=== PATIENT | male | born 1960 | race Caucasian/White ===

== ENCOUNTER 2024-06-17 15:19 | Emergency (ER) | payer MEDICARE, OTHER, SELFPAY ==
--- NOTE | ~2024-06-17 | XR_ITS ---
XR chest 2V Ordering provider: Abhi Jauregui MD History: 64 years Male with . chest pain FOR 2 DAYS . Comparison: None. FINDINGS: MEDIASTINUM: The cardiac silhouette is not enlarged. LUNGS: No infiltrates, effusions or pneumothorax. Prominent markings in the lower lobes more on the l eft side. OTHER: No free air under the diaphragm. Degenerative changes of the spine. IMPRESSION: Slightly prominent markings in the lower lobes. No acute cardiopulmonary pathology. Reviewed, dictated and finalized at location A.
--- NOTE | ~2024-06-17 | CT_ITS ---
EXAMINATION: CTA chest PE protocol DATE: 06/17/2024 15:46 CDT INDICATION: Sharp stabbing pleuritic left chest pain TECHNIQUE: Computed tomographic angiography (CTA) of the chest was performed with 100 mL Omnipaque-35 0 intravenous contrast. The dose-length product was 412.08 mGy-cm. Maximum intensity projection 3D-re constructions of the aorta and other arteries were constructed by the technologist on a separate work station.. Automated exposure control and iterative reconstruction technique were employed. COMPARISON: None. FINDINGS: Study is technically adequate without evidence for pulmonary embolism. Heart size normal. S mall hiatal hernia. No significant pleural or pericardial effusion. There is mild atherosclerosis. Mi ld right hilar lymphadenopathy, likely reactive. There is bilateral groundglass opacification of the upper and lower lungs. There is bilateral peripheral interlobular septal thickening which may reflect edema or atypical pneumonia. Moderate thoracic spondylosis. No endobronchial lesions. Moderate thora cic spondylosis. IMPRESSION: 1. No evidence for pulmonary embolism. 2: Patchy groundglass opacities bilaterally with interlobular septal thickening peripherally. Differe ntial diagnosis includes mild edema and atypical pneumonia. 3: Small hiatal hernia. Reviewed, dictated and finalized at location A. IMPRESSION: 1. No evidence for pulmonary embolism. 2: Patchy groundglass opacities bilaterally with interlobular septal thickening peripherally. Differential diagnosis includes mild edema and atypical pneumoni a. 3: Small hiatal hernia.
--- NOTE | 2024-06-17 15:21 | ECG_ITS ---
Test Date: 2024-06-17 15:25:58 Measurements Intervals [place] Rate: 75 P: 50 RI: 154 QRS: -16 QRSD: 95 T: 44 QT: 367 QTc: 411 Interpretive Statements SINUS RHYTHM LEFTWARD AXIS ABNORMAL ECG No previous ECG available for comparison Electronically Signed On 06-18-2024 09:53:28 CDT by Albert Herrera M.D.
[2024-06-17 15:22] VITALS: BP 94/63; PULSE 79; RESP 20; TEMP 36.4; O2SAT 95
--- NOTE | 2024-06-17 15:29 | ED.CHESTPAIN ---
HPI - Chest Pain General Chief Complaint: Chest Pain <Jennifer Gonzalez PA-C - Last Filed: 06/17/24 15:32> Stated Complaint: CP <Jennifer Gonzalez PA-C - Last Filed: 06/17/24 15:32> Time Seen by Provider: 06/17/24 15:28 <Jennifer Gonzalez PA-C - Last Filed: 06/17/24 15:32> Focused HPI: Patient is a 64-year-old male who presents the ED via EMS with report of chest pain. Patient reports he was having some discomfort through his left-sided chest with deep breathing yesterday. Pain became significantly worse today while he was working. Described as sharp stabbing intermittent pains and left-sided chest. Does feel somewhat short of breath. Denies back pain. Denies recent cough or cold symptoms. Denies pain or swelling in legs. Denies previous heart issues. GENERAL: Mildly ill and somewhat dusky-appearing, well-nourished, and in no acute distress. HEAD: Normocephalic, atraumatic. CHEST: No respiratory distress. Coarse lung sounds in bases bilaterally. HEART: Regular rate and rhythm.? MSK: No chest wall tenderness to palpation. NEURO: ?Alert and oriented x3. Patient screened in triage and initial orders placed.? ?Additional care and disposition to be based upon?diagnostic testing and treatment. <Jennifer Gonzalez PA-C - Last Filed: 06/17/24 15:32> Source: patient <Jennifer Gonzalez PA-C - Last Filed: 06/17/24 15:32> Mode of arrival: EMS <Jennifer Gonzalez PA-C - Last Filed: 06/17/24 15:32> Limitations: no limitations <Jennifer Gonzalez PA-C - Last Filed: 06/17/24 15:32> History of Present Illness HPI narrative: Agree with the HPI above. Patient has not had any recent illnesses or sick contacts. <Jimenez Conway MD - Last Filed: 06/17/24 17:33> Related Data Allergies/Adverse Reactions: Allergies Allergy/AdvReac Type Severity Reaction Status Date / Time No Known Allergies Allergy Verified 06/17/24 15:21 <Jennifer Gonzalez PA-C - Last Filed: 06/17/24 15:32> Review of Systems Review of Systems: As reviewed above <Jimenez Conway MD - Last Filed: 06/17/24 17:33> Exam Narrative: GENERAL: [Well-appearing, well-nourished, and in no acute distress.] HEAD: [Normocephalic, atraumatic.] EYES: [PERRLA and EOMI.] ENT: Nares clear, no rhinorrhea or epistaxis. Mucous membranes moist. NECK: Supple. CHEST: Adventitious breath sounds bilaterally but no respiratory distress, coarse crackles but no wheezing. No tachypnea HEART: [Regular rate and rhythm]. No murmur heard. [Normal peripheral pulses.] ABDOMEN: [Soft, nondistended], [nontender], [No rigidity or guarding] EXTREMITIES: Normal range of motion. [No edema.] SKIN: Warm, dry, no rash. NEURO: [No focal deficits]. Alert and oriented [x3.] PSYCH: [Normal mood and affect.] <Jimenez Conway MD - Last Filed: 06/17/24 17:33> Course Vital Signs Vital signs: Vital Signs Temperature 36.4 C 06/17/24 15:22 Pulse Rate 79 06/17/24 15:22 Respiratory Rate 20 06/17/24 15:22 Blood Pressure 94/63 L 06/17/24 15:22 Pulse Oximetry 95 06/17/24 15:22 Oxygen Delivery Room Air 06/17/24 15:22 Temperature 36.4 C 06/17/24 15:22 Pulse Rate 66 06/17/24 17:12 Respiratory Rate 17 06/17/24 17:11 Blood Pressure 110/70 06/17/24 17:11 Pulse Oximetry 96 06/17/24 17:15 Oxygen Delivery Room Air 06/17/24 17:15 <Jennifer Gonzalez PA-C - Last Filed: 06/17/24 15:32> Vital Signs Temperature 36.4 C 06/17/24 15:22 Pulse Rate 79 06/17/24 15:22 Respiratory Rate 20 06/17/24 15:22 Blood Pressure 94/63 L 06/17/24 15:22 Pulse Oximetry 95 06/17/24 15:22 Oxygen Delivery Room Air 06/17/24 15:22 Temperature 36.4 C 06/17/24 15:22 Pulse Rate 66 06/17/24 17:12 Respiratory Rate 17 06/17/24 17:11 Blood Pressure 110/70 06/17/24 17:11 Pulse Oximetry 96 06/17/24 17:15 Oxygen Delivery Room Air 06/17/24 17:15 <Jimenez Conway MD - Last Filed: 06/17/24 17:33> MDM - Chest Pain MDM Narrative Medical decision making narrative: MSE by DANE in triage. <Jennifer Gonzalez PA-C - Last Filed: 06/17/24 15:32> MSE by DANE in triage. 64-year-old male presenting to the emergency department for left-sided pleuritic chest pain for several days. Was otherwise in his normal state of health. States that hurts to move intake deep breath. Denies any trauma or injury. No sick contacts. No productive cough, no nausea, vomiting, abdominal pain, back pain, fever, chills. No component of exertional chest pain or exertional dyspnea. No cardiac history to his knowledge. No history of PE. Differential diagnosis includes costochondritis, pleurisy, pericarditis, pulmonary embolism, pneumonia, less likely ACS. Workup was ordered including CBC, CMP, lipase, EKG, chest x-ray, troponin. CT angiography of his chest was ordered he was given a fluid bolus and re-evaluated. Placed on playground monitor and pulse oximetry. Workup reveals a slight leukocytosis of 11.3, normal hemoglobin and normal platelet count. Negative troponin. Unremarkable electrolytes, normal renal and hepatic function panel. Negative lipase. Chest x-ray is largely unremarkable but there is some prominent markings in lower lobes. CT angiography shows no PE, but does show patchy bilateral ground-glass opacities consistent with atypical pneumonia pattern. Small hiatal hernia incidentally found. EKG shows sinus rhythm, no signs of ectopy or ischemia. Patient was started on atypical coverage including azithromycin and Rocephin. He is safe and stable for discharge with trial of oral outpatient antibiotics given that he is otherwise well-appearing, has no hemodynamic instability and normal labs and vitals. Patient and family were comfortable with this plan. After completing IV antibiotics he will be sent home on Augmentin for 1 week and azithromycin for 5 days. Patient comfortable with this plan and safe for discharge. <Jimenez Conway MD - Last Filed: 06/17/24 17:33> Medical Records Data Attestation: I reviewed the patient's medical records. <Jimenez Conway MD - Last Filed: 06/17/24 17:33> Lab Data Attestation: I reviewed the patient's lab results. <Jimenez Conway MD - Last Filed: 06/17/24 17:33> Result diagrams: 06/17/24 15:31 06/17/24 15:31 <Jennifer Gonzalez PA-C - Last Filed: 06/17/24 15:32> Labs: Lab Results 06/17/24 Range/Units 15:31 WBC 11.3 H (4.5-10.0) K/mm3 RBC 5.13 (4.6-6.20) M/mm3 Hgb 15.3 (14.0-18.0) g/dL Hct 46.2 (42.0-52.0) % MCV 90.1 (80-100) fl MCH 29.8 (26-34) pg MCHC 33.1 (32-36) g/dl RDW 12.4 (11.5-14.5) % Plt Count 218 (150-375) k/mm3 MPV 8.9 (7.4-10.4) fl Immature Gran % (Auto) 0.4 (0-0.5) % Neut % (Auto) 62.4 (45.5-73.1) % Lymph % (Auto) 29.3 (18.3-44.2) % [place] % (Auto) 4.9 (2.6-8.5) % Eos % (Auto) 2.4 (0-4.4) % Baso % (Auto) 0.6 (0.2-1.2) % Lymph # (Auto) 3.32 H (0.9-3.2) K/mm3 [place] # (Auto) 0.6 (0.1-0.6) K/mm3 Eos # (Auto) 0.3 (0-0.3) K/mm3 Baso # (Auto) 0.1 (0.0-0.1) K/mm3 Abs Immat Gran (auto) 0.04 H (0.00-0.031) K/mm3 Absolute Neuts (auto) 7.1 H (1.3-6.7) K/mm3 Absolute Nucleated RBC 0.000 (0.0-0.012) K/mm3 Nucleated RBC % 0.0 (0.0-0.2) % PT 13.3 (11.1-14.7) Seconds INR 1.0 APTT 27.1 (22.3-36.8) Seconds Sodium 139 (137-145) mmol/L Potassium 4.0 (3.4-5.0) mmol/L Chloride 107 (98-107) mmol/L Carbon Dioxide 21 L (22-30) mmol/L Anion Gap 11 (4-12) mmol/L BUN 13 (9-20) mg/dL Creatinine 0.91 (0.7-1.3) mg/dL Estim Creat Clear Calc 68 ml/min Estimated GFR > 60 (59 - ) Glucose 101 (65-110) mg/dL Calcium 9.3 (8.4-10.2) mg/dL Total Bilirubin 0.6 (0.2-1.3) mg/dL AST 25 (17-59) U/L ALT 20 (6-50) U/L Alkaline Phosphatase 82 (38-126) U/L Troponin I < 0.012 (0.000-0.034) ng/mL Total Protein 7.0 (6.3-8.2) g/dL Albumin 4.3 (3.5-5.1) g/dL Lipase 53 (23-300) U/L <Jennifer Gonzalez PA-C - Last Filed: 06/17/24 15:32> Lab Results 06/17/24 Range/Units 15:31 WBC 11.3 H (4.5-10.0) K/mm3 RBC 5.13 (4.6-6.20) M/mm3 Hgb 15.3 (14.0-18.0) g/dL Hct 46.2 (42.0-52.0) % MCV 90.1 (80-100) fl MCH 29.8 (26-34) pg MCHC 33.1 (32-36) g/dl RDW 12.4 (11.5-14.5) % Plt Count 218 (150-375) k/mm3 MPV 8.9 (7.4-10.4) fl Immature Gran % (Auto) 0.4 (0-0.5) % Neut % (Auto) 62.4 (45.5-73.1) % Lymph % (Auto) 29.3 (18.3-44.2) % [place] % (Auto) 4.9 (2.6-8.5) % Eos % (Auto) 2.4 (0-4.4) % Baso % (Auto) 0.6 (0.2-1.2) % Lymph # (Auto) 3.32 H (0.9-3.2) K/mm3 [place] # (Auto) 0.6 (0.1-0.6) K/mm3 Eos # (Auto) 0.3 (0-0.3) K/mm3 Baso # (Auto) 0.1 (0.0-0.1) K/mm3 Abs Immat Gran (auto) 0.04 H (0.00-0.031) K/mm3 Absolute Neuts (auto) 7.1 H (1.3-6.7) K/mm3 Absolute Nucleated RBC 0.000 (0.0-0.012) K/mm3 Nucleated RBC % 0.0 (0.0-0.2) % PT 13.3 (11.1-14.7) Seconds INR 1.0 APTT 27.1 (22.3-36.8) Seconds Sodium 139 (137-145) mmol/L Potassium 4.0 (3.4-5.0) mmol/L Chloride 107 (98-107) mmol/L Carbon Dioxide 21 L (22-30) mmol/L Anion Gap 11 (4-12) mmol/L BUN 13 (9-20) mg/dL Creatinine 0.91 (0.7-1.3) mg/dL Estim Creat Clear Calc 68 ml/min Estimated GFR > 60 (59 - ) Glucose 101 (65-110) mg/dL Calcium 9.3 (8.4-10.2) mg/dL Total Bilirubin 0.6 (0.2-1.3) mg/dL AST 25 (17-59) U/L ALT 20 (6-50) U/L Alkaline Phosphatase 82 (38-126) U/L Troponin I < 0.012 (0.000-0.034) ng/mL Total Protein 7.0 (6.3-8.2) g/dL Albumin 4.3 (3.5-5.1) g/dL Lipase 53 (23-300) U/L <Jimenez Conway MD - Last Filed: 06/17/24 17:33> Imaging Data Attestation: I personally reviewed and interpreted this imaging study as follows: <Jimenez Conway MD - Last Filed: 06/17/24 17:33> My impression: Impressions Chest CTA 06/17/24 15:46 IMPRESSION: 1. No evidence for pulmonary embolism. 2: Patchy groundglass opacities bilaterally with interlobular septal thickening peripherally. Differential diagnosis includes mild edema and atypical pneumonia. 3: Small hiatal hernia. Chest X-Ray 06/17/24 16:38 IMPRESSION: Slightly prominent markings in the lower lobes. No acute cardiopulmonary pathology. <Jimenez Conway MD - Last Filed: 06/17/24 17:33> Discharge Plan Discharge Clinical Impression: Atypical pneumonia, Atypical chest pain <Jennifer Gonzalez PA-C - Last Filed: 06/17/24 15:32> Patient Disposition: Home, Self-Care <Jennifer Gonzalez PA-C - Last Filed: 06/17/24 15:32> Condition: Stable <Jennifer Gonzalez PA-C - Last Filed: 06/17/24 15:32> Instructions: Antibiotic Form, Pneumonia (ED) <Jennifer Gonzalez PA-C - Last Filed: 06/17/24 15:32> Additional Instructions: Your CT scan shows an atypical pneumonia pattern. We will treat this with oral antibiotics and cover you with 1 week of Augmentin and 5 days of azithromycin. Take Tylenol and ibuprofen for any aches pains or fevers. Return to the ER with any new or worsening concerns otherwise follow-up with your regular doctor outpatient. <Jennifer Gonzalez PA-C - Last Filed: 06/17/24 15:32> Patient Language: Bahamian <Jennifer Gonzalez PA-C - Last Filed: 06/17/24 15:32> Prescriptions: New azithromycin [Zithromax Z-Eddi] 250 mg tablet See Rx Instructions PO .COMPLEX Qty: 6 0RF Rx Instructions: For 250 mg dose pack: take 500 mg today (day 1), then 250 mg for 4 days (days 2-5) amoxicillin-pot clavulanate 875-125 mg tablet 1 tablet PO Q12H 7 Days Qty: 14 0RF <Jennifer Gonzalez PA-C - Last Filed: 06/17/24 15:32> Follow-up/Referrals: PHYSICIAN NOT ON STAFF,NONSTAFF [Primary Care Provider] - <Jennifer Gonzalez PA-C - Last Filed: 06/17/24 15:32> Time of Disposition: 17:33 <Jennifer Gonzalez PA-C - Last Filed: 06/17/24 15:32> 17:33 <Jimenez Conway MD - Last Filed: 06/17/24 17:33>
[2024-06-17 15:39] LABS: Basophils Absolute Auto 0.1 K/mm3 (0.0-0.1); Basophils Percent Auto 0.6 % (0.2-1.2); Eosinophils Absolute Auto 0.3 K/mm3 (0-0.3); Eosinophils Percent Auto 2.4 % (0-4.4); Hematocrit 46.2 % (42.0-52.0); Hemoglobin 15.3 g/dL (14.0-18.0); Immature Granulocyte Absolute 0.04 K/mm3 (0.00-0.031); Immature Granulocyte Percent A 0.4 % (0-0.5); Lymphocytes Absolute Auto 3.32 K/mm3 (0.9-3.2); Lymphocytes Percent Auto 29.3 % (18.3-44.2); Mean Corpuscular HGB Conc 33.1 g/dl (32-36); Mean Corpuscular Hemoglobin 29.8 pg (26-34); Mean Corpuscular Volume 90.1 fl (80-100); Mean Platelet Volume 8.9 fl (7.4-10.4); Monocytes Absolute Auto 0.6 K/mm3 (0.1-0.6); Monocytes Percent Auto 4.9 % (2.6-8.5); Neutrophils Absolute Auto 7.1 K/mm3 (1.3-6.7); Neutrophils Percent Auto 62.4 % (45.5-73.1); Platelet Count Result 218 k/mm3 (150-375); Red Blood Count 5.13 M/mm3 (4.6-6.20); Red Cell Distribution Width 12.4 % (11.5-14.5); White Blood Count 11.3 K/mm3 (4.5-10.0)
[2024-06-17 15:48] LABS: Alanine Aminotransferase 20 U/L (6-50); Albumin Level 4.3 g/dL (3.5-5.1); Alkaline Phosphatase 82 U/L (38-126); Anion Gap 11 mmol/L (4-12); Aspartate Amino Transferase 25 U/L (17-59); Bilirubin,Total 0.6 mg/dL (0.2-1.3); Blood Urea Nitrogen 13 mg/dL (9-20); Calcium 9.3 mg/dL (8.4-10.2); Carbon Dioxide 21 mmol/L (22-30); Chloride 107 mmol/L (98-107); Estimated CRCL calculation 68 ml/min; Estimated Glomerular Filt Rate > 60; Glucose 101 mg/dL (65-110); Lipase 53 U/L (23-300); Sodium 139 mmol/L (137-145)
[2024-06-17 15:58] LABS: Prothrombin Time 13.3 Seconds (11.1-14.7)
[2024-06-17 15:59] LABS: Partial Thromboplastin Time 27.1 Seconds (22.3-36.8)
[2024-06-17 16:00] LABS: Troponin I < 0.012 ng/mL (0.000-0.034)
[2024-06-17 17:11] VITALS: BP 110/70; PULSE 62; RESP 17; O2SAT 95
[2024-06-17 17:12] VITALS: PULSE 66
[2024-06-17 17:15] VITALS: O2SAT 96
[2024-06-17] MEDS: LACTATED RINGERS 1,000 ML 999 ML IV CONT (17:42)
[2024-06-17] MEDS: AZITHROMYCIN 500 MG/NS 250 ML 500 MG/250 ML BAG 250 MG IVPB (17:54)
[2024-06-17 18:52] VITALS: BP 110/73; PULSE 65; RESP 20; O2SAT 98
== END 2024-06-17 18:53 | disposition home or self-care (01) ==
PROVIDERS: Family Medicine; Emergency Provider Student in an Organized Health Care Education/Training Program; PCP Physician Assistant
DX: J18.9 Pneumonia, unspecified organism (principal)
CPT/HCPCS: 36415; 71046; 71275; 80053; 83690; 84484; 85025; 85610; 85730; 93005; 96365; 96367; 99284; J0456; J0696; J7120; Q9967

== ENCOUNTER 2024-07-06 09:18 | Outpatient (CLI) | payer MEDICARE, OTHER, SELFPAY ==
--- NOTE | ~2024-07-06 | XR_ITS ---
Clinical Indication: Atypical pneumonia PA and lateral views of the chest: Comparison: 06/17/2024 Findings: The lungs are clear, without evidence of focal consolidation or pleural effusion. Cardiome diastinal silhouette is within normal limits. Bones and soft tissues are unremarkable. Impression: Normal chest. Reviewed, dictated and finalized at location . Impression: Normal chest.
== END 2024-07-06 09:19 | disposition home or self-care (01) ==
PROVIDERS: PCP Physician Assistant; Visit Provider Physician Assistant
DX: J18.9 Pneumonia, unspecified organism (principal)
CPT/HCPCS: 71046